=== PATIENT | male | born 2000 | race Caucasian/White ===

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

== ENCOUNTER 2022-10-17 01:45 | Emergency (ER) | payer MEDICAID ==
[~2022-10-17] VITALS: Ht 152.4 cm; Wt 45.4 kg
[2022-10-17 01:51] VITALS: BP 144/93
--- NOTE | 2022-10-17 01:57 | NUR ---
PT KEPT YELLING, "I NEED AN XRAY STAT YOU BITCH" LAYS ON FLOOR, RIPS BP CUFF OFF. IS UNCOOPERATIVE AND AGITATED. PT SAYS "I'M LEAVING BITCH". GETS UP IN TRIAGE AND LEAVES. PT LWBS
== END 2022-10-17 01:57 | disposition left against medical advice (07) ==
LOC: MED 01:45
DX: R07.9 Chest pain, unspecified (principal); F41.9 Anxiety disorder, unspecified; Z53.21 Procedure and treatment not carried out due to patient leaving prior to being seen by health care provider
CPT/HCPCS: 99281

== ENCOUNTER 2022-10-17 02:15 | Emergency (ER) | payer MEDICAID ==
[~2022-10-17] VITALS: Ht 152.4 cm; Wt 45.4 kg
[2022-10-17 02:20] VITALS: BP 144/89
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
--- NOTE | 2022-10-17 02:29 | NUR ---
TO BED 4 FROM TRIAGE
[2022-10-17] MEDS ORDERED: HALOPERIDOL IM 5 MG/ML VIAL IM ONE (02:30)
[2022-10-17] MEDS ORDERED: diphenhydrAMINE 50 MG/ML VIAL IM ONE (02:30)
[2022-10-17] MEDS ORDERED: LORazepam 2 MG/ML VIAL IM ONE (02:30)
--- NOTE | 2022-10-17 02:30 | NUR ---
MD Brown at bedside examining pt.
--- NOTE | 2022-10-17 02:46 | NUR ---
Pt medicated as ordered via IM. Tolerated well.
[2022-10-17] MEDS ORDERED: NACL 0.9% 1,500 ML IV ONE (03:35)
[2022-10-17 04:34] VITALS: BP 134/83
--- NOTE | 2022-10-17 05:00 | NUR ---
Pt resting comfortably in bed in stable condition.
[2022-10-17 06:10] LABS: BARBITURATE, URINE NEGATIVE ng/ml (NEG <=200); BENZODIAZEPINE, URINE POSITIVE ng/mL (NEG <=200); CANNABINOID, URINE POSITIVE ng/mL (NEG <=50); COCAINE, URINE NEGATIVE ng/mL (NEG <=300); PHENCYCLIDINE SCREEN,URINE NEGATIVE ng/mL (NEG <=25)
[2022-10-17 06:11] LABS: OPIATE, URINE NEGATIVE ng/mL (NEG <=2000)
== END 2022-10-17 15:30 | disposition home or self-care (01) ==
LOC: MED 02:15
DX: E27.49 Other adrenocortical insufficiency (principal); F15.129 Other stimulant abuse with intoxication, unspecified; Z79.899 Other long term (current) drug therapy
CPT/HCPCS: 80305; 96360; 96372; 99284; J1200; J1630; J2060; J7030

== ENCOUNTER 2023-02-13 22:40 | Emergency (ER) | payer MEDICAID | END 2023-02-13 22:50 | disposition left against medical advice (07) | LOC: MED 22:40 | DX: R41.82 Altered mental status, unspecified (principal); Z53.21 Procedure and treatment not carried out due to patient leaving prior to being seen by health care provider ==

== ENCOUNTER 2024-01-14 12:12 | Emergency (ER) | payer MEDICAID ==
[~2024-01-14] VITALS: Ht 149.9 cm; Wt 53.6 kg
[2024-01-14 12:28] VITALS: BP 133/98; PULSE 106; RESP 18; TEMP 97.8; O2SAT 98
--- NOTE | 2024-01-14 13:12 | NUR ---
PT AMB TO CHAIR C
--- NOTE | 2024-01-14 14:04 | NUR ---
Patient discharged with v/s stable. Written and verbal after care instructions given and explained. Patient alert, oriented and verbalized understanding of instructions. Ambulatory with steady gait. All questions addressed prior to discharge. ID band removed. Patient advised to follow up with PMD. Rx SENT TO PHARMACY. Patient educated on indication of medication including possible reaction and side effects. Opportunity to ask questions provided and answered.
== END 2024-01-14 14:04 | disposition home or self-care (01) ==
LOC: MED 12:12
DX: S90.821A Blister (nonthermal), right foot, initial encounter (principal); X58.XXXA Exposure to other specified factors, initial encounter; Y92.89 Other specified places as the place of occurrence of the external cause; Y93.89 Activity, other specified; Y99.8 Other external cause status
CPT/HCPCS: 99281

== ENCOUNTER 2024-02-09 16:25 | Emergency (ER) | payer MEDICAID ==
[~2024-02-09] VITALS: Ht 149.9 cm; Wt 54.0 kg
[2024-02-09 16:26] VITALS: BP_SYST 140; BP_DIAS 10; BP_DIAS 99; PULSE 100; RESP 18; TEMP 98.6; O2SAT 98
[2024-02-09] MEDS ORDERED: MORPHINE SULFATE 4 MG/ML SYR IM ONE (16:50)
[2024-02-09] MEDS ORDERED: IBUP-2213 PO (17:35)
[2024-02-09] MEDS: HYDROcodone/APAP 5/325 MG 1 TAB TAB PO ONE (17:52)
[2024-02-09 18:12] VITALS: BP 114/76; PULSE 72; RESP 16; TEMP 98; O2SAT 99
== END 2024-02-09 18:10 | disposition home or self-care (01) ==
LOC: MED 16:25
DX: S02.602A Fracture of unspecified part of body of left mandible, initial encounter for closed fracture (principal); J45.909 Unspecified asthma, uncomplicated; E78.5 Hyperlipidemia, unspecified; Z79.899 Other long term (current) drug therapy; Y04.0XXA Assault by unarmed brawl or fight, initial encounter; Y92.89 Other specified places as the place of occurrence of the external cause; Y93.89 Activity, other specified; Y99.8 Other external cause status
CPT/HCPCS: 70110; 99283; J2270

== ENCOUNTER 2024-02-17 18:43 | Emergency (ER) | payer MEDICAID ==
[~2024-02-17] VITALS: Ht 149.9 cm; Wt 53.1 kg
[~2024-02-17 18:43] MED LIST: IBUP-2213 PO
[2024-02-17 18:59] VITALS: BP 133/89; PULSE 90; RESP 16; TEMP 98.3; O2SAT 99
== END 2024-02-17 19:15 | disposition left against medical advice (07) ==
LOC: MED 18:43
DX: R68.84 Jaw pain (principal); Z53.21 Procedure and treatment not carried out due to patient leaving prior to being seen by health care provider

== ENCOUNTER 2024-02-21 05:30 | Emergency (ER) | payer MEDICAID ==
[~2024-02-21] VITALS: Ht 157.5 cm; Wt 63.5 kg
[2024-02-21 05:35] VITALS: BP 129/69; PULSE 79; RESP 20; TEMP 97.8; O2SAT 94
[2024-02-21] MEDS ORDERED: IBUP-2218 PO (09:02)
[2024-02-21] MEDS ORDERED: ACET500T99 PO (09:02)
[2024-02-21] MEDS: ACETAMINOPHEN 325 MG TAB PO ONE (09:51)
[2024-02-21 10:00] VITALS: BP 123/70; PULSE 78; RESP 20; TEMP 97.3; O2SAT 99
== END 2024-02-21 10:00 | disposition home or self-care (01) ==
LOC: MED 05:30
DX: R68.84 Jaw pain (principal); J45.909 Unspecified asthma, uncomplicated; Z79.899 Other long term (current) drug therapy
CPT/HCPCS: 99283